=== PATIENT | female | born 1935 | race Caucasian/White ===

== ENCOUNTER 2018-08-03 17:47 | Emergency (ER) | payer MEDICARE, OTHER, SELFPAY ==
[2018-08-03 17:49] VITALS: BP 162/68; PULSE 66; RESP 15; TEMP 36.4; O2SAT 97; BMI 22.1
--- NOTE | 2018-08-03 17:50 | RAD_ITS ---
STUDY: X-RAY - LEFT ANKLE REASON FOR EXAM: Female, 82 years old. Twisting injury. TECHNIQUE: 3 view(s) of the ankle. COMPARISON: None. FINDINGS: The bones are demineralized. There is a nondisplaced fracture of the base of the fifth metatarsal. No additional fracture is identified. A small heel spur is noted. There is moderate soft tissue edema about the lower leg, anterior and lateral ankle. RAD/Ankle min 3 Views IMPRESSION: 1. Nondisplaced fracture of the fifth metatarsal base. 2. Moderate soft tissue swelling. Electronically Signed: Tosin Deras MD at 18:30 EDT Tel , Service support ,
--- NOTE | 2018-08-03 19:47 | RAD_ITS ---
STUDY: X-RAY - LEFT FOOT CLINICAL: Female, 82 years old. Fall, pain. TECHNIQUE: view(s) of the foot. COMPARISON: None. FINDINGS: Bones are demineralized. Fracture line at the base of the fifth metatarsal appears subacute. No acute fracture is identified. There is prominence of the first metatarsal head with mild medial soft tissue swelling consistent with bunion. No osseous erosion to indicate gout. Small heel spur is noted. RAD/Foot min 3 Views IMPRESSION: 1. Fifth metatarsal fracture appears subacute to chronic. 2. Bunion with soft tissue swelling at the first metatarsal head. Electronically Signed: Tosin Deras MD at 20:32 EDT Tel , Service support ,
--- NOTE | 2018-08-03 20:23 | ED.VISSUMM ---
- ER Visit Summary Date of Service: 08/03/18 Chief Complaint: Injury to left foot and ankle] History of Present Illness: The patient is a 82 F [presents to the emergency department with complaint of injuring her left foot and ankle today approximately 4 PM. Patient states she got up off the couch and the toe of her shoe caught on the rug and her foot twisted. Patient having a hard time bearing weight secondary to pain. She denies any other injuries.] Physical Examination: [Left foot-patient does have ecchymosis and bruising over the dorsal lateral aspect of the foot. Patient has pain at the base of the fifth metatarsal. No significant tenderness over the medial or lateral malleolus. No obvious deformity noted. She is nervously intact distally. No pain at the proximal fibular head.] Test Results: [Nursing staff will be a protocol ordered x-rays of the left ankle initially which did show a fracture of the base of the fifth metatarsal. I also ordered x-rays of the left foot to evaluate the foot completely and on my interpretation I noted a fracture of the base of the fifth metatarsal no other fractures were noted.] Emergency Department Course and Treatment: [Patient was given a walking boot and crutches.] Treatment Plan: [Patient advised to ice and elevate the extremity. Patient did not want anything for pain. Patient will be leaving [facility] [address] tomorrow as she is from [place] and she is advised to follow-up with an orthopedic surgeon within the next 5-7 days.] Disposition: [Discharged home in stable condition] Impression: [Left foot fracture-fifth metatarsal base] This note was generated with [employer] dictation software. It may contain incorrect words, spelling, and punctuation that were not noted in review of the chart prior to signing ED Disposition - Plan for ED Patient: Chief Complaint: Lower Extremity Injury Referrals: [facility] Doctor,Out of [Primary Care Provider] -
--- NOTE | 2018-08-03 20:26 | ED.DCSUM_ITS ---
- ER Visit Summary Date of Service: 08/03/18 Chief Complaint: Injury to left foot and ankle] History of Present Illness: The patient is a 82 F [presents to the emergency department with complaint of injuring her left foot and ankle today approximately 4 PM. Patient states she got up off the couch and the toe of her shoe caught on the rug and her foot twisted. Patient having a hard time bearing weight secondary to pain. She denies any other injuries.] Physical Examination: [Left foot-patient does have ecchymosis and bruising over the dorsal lateral aspect of the foot. Patient has pain at the base of the fifth metatarsal. No significant tenderness over the medial or lateral malleolus. No obvious deformity noted. She is nervously intact distally. No pain at the proximal fibular head.] Test Results: [Nursing staff will be a protocol ordered x-rays of the left ankle initially which did show a fracture of the base of the fifth metatarsal. I also ordered x-rays of the left foot to evaluate the foot completely and on my interpretation I noted a fracture of the base of the fifth metatarsal no other fractures were noted.] Emergency Department Course and Treatment: [Patient was given a walking boot and crutches.] Treatment Plan: [Patient advised to ice and elevate the extremity. Patient did not want anything for pain. Patient will be leaving [facility] tomorrow as she is from [place] and she is advised to follow-up with an orthopedic surgeon within the next 5-7 days.] Disposition: [Discharged home in stable condition] Impression: [Left foot fracture-fifth metatarsal base] This note was generated with [employer] dictation software. It may contain incorrect words, spelling, and punctuation that were not noted in review of the chart pr ior to signing ED Disposition - Plan for ED Patient: Chief Complaint: Lower Extremity Injury Referrals: [facility] Doctor,Out of [Primary Care Provider] -
--- NOTE | 2018-08-03 20:27 | ED.DEP ---
ED Disposition - Plan for ED Patient: Chief Complaint: Lower Extremity Injury Instructions: ED Fx Foot Referrals: [facility],Out of [Primary Care Provider] - Additional Instructions: See orthopedic doctor within 5-7 days
== END 2018-08-03 20:40 | disposition home or self-care (01) ==
LOC: ED 20:02
PROVIDERS: Emergency Provider Emergency Medicine
DX: S92.355A Nondisplaced fracture of fifth metatarsal bone, left foot, initial encounter for closed fracture (principal); J44.9 Chronic obstructive pulmonary disease, unspecified; I10 Essential (primary) hypertension; Z79.51 Long term (current) use of inhaled steroids; Z79.899 Other long term (current) drug therapy; X50.1XXA Overexertion from prolonged static or awkward postures, initial encounter; Y93.01 Activity, walking, marching and hiking; Y92.008 Other place in unspecified non-institutional (private) residence as the place of occurrence of the external cause; Y99.8 Other external cause status
CPT/HCPCS: 73610; 73630; 99284